=== PATIENT | female | born 1995 | race Two or more races ===

== ENCOUNTER → 2025-01-22 | Outpatient (CLI) | payer OTHER, SELFPAY ==
--- NOTE | 2025-01-22 | XR_ITS ---
Examination: Ultrasound soft tissue left arm TECHNIQUE: Grayscale sonographic images soft tissue left lower arm Date and time: January 22, 2025 1110 hours INDICATIONS: Left arm swelling and pain beginning 2 weeks ago. FINDINGS: Lymph node at the area concern 7 x 4 x 5 mm IMPRESSION: Nonspecific lymph node at the area concern, suggest 3 month follow-up ultrasound soft tissue
--- NOTE | 2025-01-22 10:55 | XR_ITS ---
Examination: Ultrasound soft tissue left axilla TECHNIQUE: Grayscale sonographic images soft tissue left exit INDICATIONS: Left axillary pain beginning 2 weeks ago FINDINGS: Multiple small lymph nodes in the left axilla No pathologic lymphadenopathy IMPRESSION: BI-RADS Category 2: Benign findings Given the patient's presentation, consider left breast sonography follow-up
== END | disposition home or self-care (01) ==
LOC: COPL 10:42 → CDIM 01-29 11:02
PROVIDERS: PCP Nurse Practitioner; Referring Provider Nurse Practitioner; Visit Provider Nurse Practitioner
DX: M79.89 Other specified soft tissue disorders (principal)
CPT/HCPCS: 76882

== ENCOUNTER → 2025-01-27 | Outpatient (CLI) | payer OTHER, SELFPAY ==
--- NOTE | 2025-01-27 09:21 | XR_ITS ---
Examination: Breast ultrasound complete, bilateral Date and time of exam: January 27, 2025 0934 hours INDICATIONS: Left axillary swelling and pain beginning 2 weeks ago Technique: Real-time grayscale ultrasonographic imaging bilateral breasts, including all 4 quadrants as well as nipple retroareolar and axillary regions. Findings: Sonographic images right breast No cystic or solid mass Sonographic images left breast Left axillary lymph nodes 1.4 x 0.8 cm, 2.8 x 1.4 cm IMPRESSION: BI-RADS Category 3: Probably benign findings One additional 6 month left breast sonogram follow-up is needed to document stability of left axillary lymph nodes
--- NOTE | 2025-01-27 10:28 | XR_ITS ---
Examination: Diagnostic digital mammography, unilateral, left Computer aided detection 3-D breast Tomosynthesis, unilateral Date and time of exam: January 27, 2025 1041 hours INDICATIONS: Left arm axillary and swelling beginning 2 weeks ago, family history breast cancer Technique: Nonmagnified MLO, CC views of the left breast have been obtained, reconstructed from 3-D Tomosynthesis images. R2 computer aided detection program utilized for evaluation of suspicious masses and/or abnormal calcifications. 3-D Tomosynthesis images obtained. Findings: Scattered areas of fibroglandular density Benign calcifications. No suspicious masses Impression: BI-RADS category 2: Benign findings Recommend repeat left breast axillary sonography in one to 2 weeks as clinically warranted
== END | disposition home or self-care (01) ==
LOC: CDIM 09:13
PROVIDERS: PCP Nurse Practitioner; Referring Provider Nurse Practitioner; Visit Provider Nurse Practitioner
DX: R92.323 Mammographic fibroglandular density, bilateral breasts (principal); R92.1 Mammographic calcification found on diagnostic imaging of breast
CPT/HCPCS: 76641; 77061; 77065; G0279

== ENCOUNTER → 2025-07-23 | Outpatient (CLI) | payer OTHER, SELFPAY ==
--- NOTE | 2025-07-23 09:00 | XR_ITS ---
Examination: Breast ultrasound complete, bilateral Date and time of exam: July 23, 2025, 0925 hours INDICATIONS: Left axillary pain and swelling radiating to the left arm beginning 2 years ago, family history of breast cancer Technique: Real-time grayscale ultrasonographic imaging bilateral breasts, including all 4 quadrants as well as nipple retroareolar and axillary regions. Findings: Sonographic images right breast No cystic or solid mass 3.0 x 2.5 cm right axillary lymph node Sonographic images left breast No cystic or solid mass Left axillary lymph nodes 3.3 x 3.2 cm, 2.1 x 1.8 cm IMPRESSION: BI-RADS Category 2: Benign findings
--- NOTE | 2025-07-23 10:00 | XR_ITS ---
Examination: Diagnostic digital mammography, bilateral Computer aided detection 3-D breast Tomosynthesis, bilateral Date and time of exam: 07/23/2025, 11:25 a.m. Comparisons: January 27, 2025. Same day ultrasound exam Indications: Follow-up left breast pain. With probably benign left axillary lymph node seen on prior ultrasound. Technique: Nonmagnified MLO, CC views of the breasts to been obtained, reconstructed from 3-D Tomosynthesis images. R2 computer aided detection program utilized for evaluation of suspicious masses and/or abnormal calcifications. 3-D Tomosynthesis images obtained. Findings: There are scattered areas of fibroglandular density. No evidence of abnormal masses or suspicious calcifications. Impression: BI-RADS category 1: Negative findings (within normal) Recommend 1 year follow-up mammogram
== END | disposition home or self-care (01) ==
PROVIDERS: PCP Nurse Practitioner; Referring Provider Nurse Practitioner; Visit Provider Nurse Practitioner
DX: R92.313 Mammographic fatty tissue density, bilateral breasts (principal); Z80.3 Family history of malignant neoplasm of breast
CPT/HCPCS: 76641; 77062; 77066; G0279